=== PATIENT | female | born 1960 | race Caucasian/White ===

== ENCOUNTER → 2017-10-25 | Outpatient (CLI) | payer BC | LOC: LAB.O 09:33 | DX: E03.9 Hypothyroidism, unspecified (principal); R68.0 Hypothermia, not associated with low environmental temperature ==

== ENCOUNTER → 2017-10-29 | Outpatient (CLI) | payer BC | END | disposition home or self-care (01) | LOC: LAB 16:20 | PROVIDERS: ATTEND Naturopath | DX: R53.83 Other fatigue (principal); K90.9 Intestinal malabsorption, unspecified; E03.9 Hypothyroidism, unspecified ==

== ENCOUNTER → 2018-10-16 | Outpatient (CLI) | payer BC, OTHER ==
--- NOTE | 2018-10-17 08:11 | RAD ---
EXAM DESCRIPTION: Foot,Right 3 Views CLINICAL HISTORY: 57 years Female, FOOT PAIN COMPARISON: January 02, 2016 FINDINGS: There is a non or minimally displaced fracture involving the fifth metatarsal diaphysis, new from the prior exam and either acute or subacute. A separate old healed fifth metatarsal fracture is noted at the same location, unchanged from the previous exam. No additional fracture or malalignment. The second toe is surgically absent. No radiopaque foreign body or soft tissue gas. Tiny plantar calcaneal enthesophyte. IMPRESSION: Non or minimally displaced right fifth metatarsal fracture, new from December,. Electronically signed by: Calderon Aggarwal MD 10/17/2018 8:10 AM [facility]
== END ==
LOC: RAD 08:23
PROVIDERS: ATTEND Orthopaedic Surgery
DX: S92.351A Displaced fracture of fifth metatarsal bone, right foot, initial encounter for closed fracture (principal)

== ENCOUNTER → 2018-10-29 | Outpatient (CLI) | payer OTHER ==
--- NOTE | 2018-10-30 07:17 | RAD ---
EXAM DESCRIPTION: Foot,Right 3 Views CLINICAL HISTORY: 57 years Female, CLOSED FX OF METATARSAL BONE COMPARISON: October 16, 2018 FINDINGS: Three views of the right foot were obtained. Again seen is a slightly displaced right fifth metatarsal fracture, not significantly changed from October 16, 2018. No new fracture or malalignment. Again noted is surgical absence of the right second toe. IMPRESSION: Slightly displaced, nonunited right fifth metatarsal fracture, unchanged from October 16, 2018. No new abnormality. Electronically signed by: Calderon Aggarwal MD 10/30/2018 7:16 AM [facility]
== END ==
LOC: RAD 14:18
PROVIDERS: ATTEND Orthopaedic Surgery
DX: S92.301D Fracture of unspecified metatarsal bone(s), right foot, subsequent encounter for fracture with routine healing (principal)

== ENCOUNTER → 2018-11-20 | Outpatient (CLI) | payer OTHER ==
--- NOTE | 2018-11-20 08:37 | RAD ---
EXAM DESCRIPTION: Foot,Right 3 x-ray Views CLINICAL HISTORY: 57 years, Female, CLOSED FX OF METATARSAL BONE COMPARISON: Previous study October 29, 2018 TECHNIQUE: AP, lateral, and oblique views of the right foot FINDINGS: Bones appear osteopenic with prominent trabecular pattern. 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 Healing fracture of the distal diaphysis of the right fifth metatarsal is noted with bridging callus and decreased visibility of the fracture line since previous study. No midfoot malalignment. No change in alignment at the fracture site. Degenerative narrowing of the joints of the toes and first metatarsal phalangeal joint. Intact talus and calcaneus on the lateral view. Prominent plantar calcaneal enthesophyte. Small osteophytes at the dorsal navicular and talus. There is no other bone, joint, or soft tissue abnormality observed. There is no radiopaque foreign body. IMPRESSION: Healing fracture of the right fifth metatarsal. Electronically signed by: Devyn Lyon MD 11/20/2018 8:36 AM [facility]
== END ==
LOC: RAD 07:48
PROVIDERS: ATTEND Orthopaedic Surgery
DX: S92.301D Fracture of unspecified metatarsal bone(s), right foot, subsequent encounter for fracture with routine healing (principal)

== ENCOUNTER → 2018-12-15 | Outpatient (CLI) | payer OTHER ==
--- NOTE | 2018-12-15 10:55 | RAD ---
EXAM DESCRIPTION: Foot,Right 3 Views: CR/DR/XR CLINICAL HISTORY: 58 years Female CLOSED FRACTURE OF METATARSAL BONE RIGHT FOOT COMPARISON: Right foot radiographs 11/20/2018. TECHNIQUE: 3 VIEWS right foot AP. Lateral. Oblique. FINDINGS: Overall bone density decreased. Previous amputation right second toe again noted. No bony or soft tissue changes. Incompletely healed fracture distal right fifth metatarsal showing less radiolucency. IMPRESSION: Mass radiolucency of right fifth metatarsal fracture indicating healing. Electronically signed by: Zafar Verdugo MD 12/15/2018 10:53 AM [facility]
== END ==
LOC: RAD 07:44
PROVIDERS: ATTEND Orthopaedic Surgery
DX: S92.354D Nondisplaced fracture of fifth metatarsal bone, right foot, subsequent encounter for fracture with routine healing (principal)

== ENCOUNTER 2020-05-22 19:16 | Emergency (ER) | payer SELFPAY ==
[2020-05-22] MEDS ORDERED: KETOROLAC TROMETHAMINE INJ 30 MG/ML VIAL IV ONE (20:28)
[2020-05-22] MEDS ORDERED: cefTRIAXone SODIUM 1 GM in SODIUM CHL 0.9% 50ML MIN-BAG+ 50 ML IVPB ONE (20:28)
--- NOTE | 2020-05-22 20:37 | ED.PDOC ---
History of Present Illness - General Chief Complaint: Fever Stated Complaint: fever, diarrhea, weakness, dizzy Time Seen by Provider: 05/22/20 19:25 Source: patient Exam Limitations: no limitations - History of Present Illness Initial Comments: Pt here c/o nonproductive cough, intermittent fevers up to 104F and mild SOB gradually worsening over the past 10 days. Pt says on 05/11 was dx with COVID and placed on quarantine, which he's supposed to exit 05/24. Pt says 10 days ago she developed mild cough and mild fever. PCP ordered COVID test ~9 days ago, but she's unsure of result. Pt says her physician rx her decadron and zpak, but she started it ~05/19. Pt denies abd pain, urinary symptoms, N/V/D. Pt came in because she started feeling a little SOB with exertion. Timing/Duration: other - 10 days ago Fever Severity/Quality: greater than 102 F Fever Therapy DINKEY BRAKEMAN: Ibuprofen, Tylenol Associated Symptoms: cough, shortness of breath - mild Review of Systems - Review of Systems Constitutional: States: chills, fever, weakness EENTM: States: no symptoms reported Respiratory: States: cough, short of breath. Denies: orthopnea, stridor, wheezing Cardiology: States: no symptoms reported. Denies: chest pain, palpitations, syncope Gastrointestinal/Abdominal: States: no symptoms reported. Denies: abdominal pain, constipation, diarrhea, nausea, vomiting Genitourinary: States: no symptoms reported. Denies: dysuria, frequency, hematuria, pain Musculoskeletal: States: no symptoms reported Skin: States: no symptoms reported Neurological: States: no symptoms reported Endocrine: States: no symptoms reported Hematologic/Lymphatic: States: no symptoms reported Past Medical History (General) - Patient Medical History Hx Seizures: No Hx Stroke: No Hx Dementia: No Hx Asthma: Yes Hx of COPD: No Hx Cardiac Disorders: No Hx Congestive Heart Failure: No Hx Pacemaker: No Hx Hypertension: No Hx Thyroid Disease: Yes Hx Diabetes: No Hx Gastroesophageal Reflux: No Hx Renal Disease: No Hx Cancer: No Hx of HIV: No Hx Hepatitis C: No Hx MRSA: No - Vaccination History Hx Tetanus, Diphtheria Vaccination: Yes Hx Influenza Vaccination: Yes Hx Pneumococcal Vaccination: Yes - Social History Hx Tobacco Use: No Hx Chewing Tobacco Use: No Hx Alcohol Use: No Hx Substance Use: No Hx Substance Use Treatment: No Hx Depression: No Hx Physical Abuse: No Hx Emotional Abuse: No Hx Suspected Abuse: No Family Medical History - Family History Mother Family History: No Known Living Status: Still Living Physical Exam - Physical Exam General Appearance: Alert, Obvious distress - mild general, no respiratory distress, Well Developed, Well Groomed, Well Hydrated, Well Nourished ENT Exam: normal ENT inspection, TMs normal, pharynx normal Neck: non-tender, full range of motion, supple Respiratory: chest non-tender, lungs clear, normal breath sounds, no accessory muscle use Cardiovascular/Chest: normal peripheral pulses, regular rate, rhythm, no edema, no gallop, no JVD, no murmur Gastrointestinal/Abdominal: normal bowel sounds, non tender, soft, no organomegaly, no pulsatile mass Extremity: non-tender, normal inspection, no pedal edema Neurologic: alert, normal mood/affect Skin Exam: normal color, warm/dry Progress - Progress Progress: 05/22/20 21:07 NSR [address] elevations. Nl intervals, nl axis. 05/22/20 21:43 EXAM DESCRIPTION: Chest,1 View CLINICAL HISTORY: fever, cough COMPARISON: None. FINDINGS: Cardiac silhouette is within normal limits. There are poorly defined groundglass opacifications in each lung, left greater than right. There is scoliosis. No significant pleural effusion. No pneumothorax. IMPRESSION: Findings are concerning for viral inflammation. Atypical pneumonia is also possible. Electronically signed by: Zafar Smith 05/22/2020 9:36 PM CDT 05/22/20 23:28 Pt urinated and did not provide specimen. Once that results, we can disposition pt. 05/23/20 00:44 Pt says she feels significantly better. Sitting up her O2 sat is 96% and RR 18 on RA. I offered admission, but pt adamantly declined. She said she has oximeter at home, and will return if worsening in any way. I asked pt to continue Zpak and Decadron. 05/23/20 00:55 Laboratory Tests 05/22/20 05/22/20 05/22/20 20:56 20:56 20:56 WBC 8.7 RBC 4.80 Hgb 13.8 Hct 40.7 MCV 84.8 MCH 28.7 MCHC 33.8 RDW 14.3 Plt Count 244 MPV 8.6 Absolute Neuts (auto) 6.90 H Absolute Lymphs (auto) 1.10 Absolute Monos (auto) 0.60 Absolute Eos (auto) 0.00 Absolute Basos (auto) 0.00 Neutrophils % 79.6 H Lymphocytes % 12.5 L Monocytes % 7.3 Eosinophils % 0.1 L Basophils % 0.5 Sodium 141 Potassium 3.7 Chloride 106 Carbon Dioxide 24 Anion Gap 14.7 BUN 17 Creatinine 0.65 BUN/Creatinine Ratio 26.2 H Random Glucose 110 H Serum Osmolality 283.4 Lactic Acid Calcium 8.3 L Total Bilirubin 0.6 AST 39 ALT 60 Alkaline Phosphatase 79 Troponin I < 0.02 Serum Total Protein 6.9 Albumin 3.4 Globulin 3.5 Albumin/Globulin Ratio 1.0 L Urine Color Urine Appearance Urine pH Ur Specific [place]ward[place] Urine Protein Urine Glucose (UA) Urine Ketones Urine Blood Urine Nitrite Urine Bilirubin Urine Urobilinogen Ur Leukocyte Esterase Urine RBC Urine WBC Ur Epithelial Cells Urine Bacteria Urine Mucus 05/22/20 05/23/20 20:56 00:10 WBC RBC Hgb Hct MCV MCH MCHC RDW Plt Count MPV Absolute Neuts (auto) Absolute Lymphs (auto) Absolute Monos (auto) Absolute Eos (auto) Absolute Basos (auto) Neutrophils % Lymphocytes % Monocytes % Eosinophils % Basophils % Sodium Potassium Chloride Carbon Dioxide Anion Gap BUN Creatinine BUN/Creatinine Ratio Random Glucose Serum Osmolality Lactic Acid 2.1 Calcium Total Bilirubin AST ALT Alkaline Phosphatase Troponin I Serum Total Protein Albumin Globulin Albumin/Globulin Ratio Urine Color Dk yellow H Urine Appearance Sl cloudy Urine pH 5.5 Ur Specific Steward[place] >= 1.030 Urine Protein 30 Urine Glucose (UA) Negative Urine Ketones 15 H Urine Blood Negative Urine Nitrite Negative Urine Bilirubin Small H Urine Urobilinogen 0.2 Ur Leukocyte Esterase Negative Urine RBC 0 Urine WBC 0-1 Ur Epithelial Cells 3-5 Urine Bacteria Rare Urine Mucus Moderate Departure - Departure Clinical Impression: Upper respiratory tract infection, Shortness of breath, Exposure to COVID-19 virus Time of Disposition: 00:46 Disposition: Discharge to Home or Self Care Condition: Excellent Departure Forms: ED Discharge - Pt. Copy, Patient Portal Self Enrollment Instructions: Acute Bronchitis, Adult (DC), Shortness of Breath (Dyspnea) (DC) Referrals: Shun Silveira MD [Primary Care Provider] - 1-2 Weeks Prescriptions: RX: Albuterol Inhaler [Ventolin Hfa Inhaler] 1 puff INH Q4HR #1 inh Home Medications: Ambulatory Orders RX: Levothyroxine Sodium 25 mcg PO DAILY@0700 11/24/14 RX: Montelukast [Singulair] 10 mg PO DAILY@0700 11/24/14 RX: Trazodone HCl 50 mg PO BEDTIME 11/24/14 RX: Zolpidem Tartrate [Ambien] 10 mg PO BEDTIME 11/24/14 Naproxen Sodium [Anaprox Ds] 550 mg PO BID #30 tab 06/04/15 RX: Albuterol Inhaler [Ventolin Hfa Inhaler] 1 puff INH Q4HR #1 inh 05/23/20
--- NOTE | 2020-05-22 21:37 | RAD ---
EXAM DESCRIPTION: Chest,1 View CLINICAL HISTORY: fever, cough COMPARISON: None. FINDINGS: Cardiac silhouette is within normal limits. There are poorly defined groundglass opacifications in each lung, left greater than right. There is scoliosis. No significant pleural effusion. No pneumothorax. IMPRESSION: Findings are concerning for viral inflammation. Atypical pneumonia is also possible. Electronically signed by: Zafar Smith 05/22/2020 9:36 PM CDT
[2020-05-22] MEDS ORDERED: SODIUM CHLORIDE 0.9% 1000ML 1,000 ML IVS ONE (21:42)
[2020-05-23 01:09] VITALS: BP 95/67; TEMP 97.8; O2SAT 96
== END 2020-05-23 01:11 | disposition home or self-care (01) ==
LOC: ER 19:16
DX: J06.9 Acute upper respiratory infection, unspecified (principal); R06.02 Shortness of breath; R50.9 Fever, unspecified; Z20.828 Contact with and (suspected) exposure to other viral communicable diseases
CPT/HCPCS: 71045; 80053; 81001; 83605; 84484; 85025; 87040; 87077; 87186; 93005; J0696; J1885; J7030; J7050; U0002